=== PATIENT | female | born 2000 | race Caucasian/White ===

== ENCOUNTER → 2021-02-25 | Outpatient (CLI) | payer OTHER ==
[~2021-02-25] MED LIST: VIBRAMYCIN100 MG PO
[2021-02-25 15:30] LABS: RED BLOOD COUNT 4.33 M/UL (4.00-5.10); WHITE BLOOD COUNT 6.9 K/UL (4.5-11.0)
[2021-02-25 15:48] LABS: BUN/CREATININE RATIO 11 (0-10)
[2021-02-27 08:10] LABS: VITAMIN D, 25-HYDROXY 50.6 ng/mL (30.0-100.0)
== END ==
LOC: LAB 14:51
PROVIDERS: Pediatrics
DX: R00.2 Palpitations (principal); R20.0 Anesthesia of skin; R20.2 Paresthesia of skin; R42 Dizziness and giddiness
CPT/HCPCS: 80053; 84439; 84443; 84480; 84481; 85025; 93005

== ENCOUNTER → 2021-04-14 | Outpatient (CLI) | payer OTHER ==
[2021-04-14 14:38] LABS: HEMOGLOBIN 12.8 gm/dl (12.3-15.3); RED BLOOD COUNT 4.69 M/UL (4.00-5.10); WHITE BLOOD COUNT 6.6 K/UL (4.5-11.0)
== END ==
LOC: LAB 14:22
PROVIDERS: Registered Nurse
DX: R00.2 Palpitations (principal)
CPT/HCPCS: 36415; 85025